=== PATIENT | female | born 1990 ===

== ENCOUNTER 2022-10-27 16:54 | Inpatient (IN) ==
[2022-10-27 17:44] LABS: Creatinine Urine Random 11.9 mg/dl; Protein Creatinine Ratio Urine 1.2 (0-0.2); Total Protein Urine Random 14.3 mg/dl (0-11.9)
[2022-10-27 17:53] LABS: Albumin Globulin Ratio 1.3 (0.9-2); Albumin Level 3.3 gm/dl (3.4-5.0); BUN Creatinine Ratio 13.7 (10-20); Bilirubin,Total 0.2 mg/dl (0.2-1.0); Calcium 8.9 mg/dl (8.6-10.3); Creatinine Clr Calc Pharmacy 182.7 ml/min; Est GFR (African American) 145.4 ml/min; Est GFR (Non-African American) 125.5 ml/min; Globulin 2.6 gm/dl (2.5-4.0); Potassium 3.9 mmol/L (3.5-5.1); Total Protein 5.9 gm/dl (6.0-8.3)
[2022-10-27 17:54] LABS: Basophils # (auto) 0.03 K/uL (0.00-0.20); Basophils % (auto) 0.3 %; Eosinophils # (auto) 0.07 K/uL (0.00-0.50); Eosinophils % (auto) 0.6 %; Hemoglobin 10.6 g/dl (12.0-16.0); Immature Granulocytes # (auto) 0.11 K/uL (0.01-0.20); Lymphocytes # (auto) 2.65 K/uL (1.20-3.40); Lymphocytes % (auto) 23.2 %; Mean Corpuscular Hemoglobin 26.6 pg (25.0-34.0); Mean Corpuscular Hgb Conc 32.1 g/dL (32.0-36.0); Mean Corpuscular Volume 82.7 fL (80.0-100.0); Mean Platelet Volume 9.9 fL (9.4-12.4); Monocytes # (auto) 0.83 K/uL (0.11-0.59); Monocytes % (auto) 7.3 %; Neutrophils # (auto) 7.75 K/uL (1.40-6.50); Neutrophils % (auto) 67.6 %; Platelet Count 281 K/uL (130-400); RDW Standard Deviation 44.4 fL (36.4-46.3); Red Blood Count 3.99 M/uL (4.20-5.40); White Blood Count 11.44 K/ul (4.8-10.8)
--- NOTE | 2022-10-27 18:42 | History & Physical Report ---
Date of Service October 27, 2022 Assessment & Plan (1) 37 weeks gestation of : Plan: Patient has had elevated blood pressures, 1 severe range, with protein creatinine ratio greater than 0.3 Admission, routine labs, recommend delivery at this time Recommend repeat as patient does not have operative report to confirm lower transverse delivery from previous delivery. Patient is agreeable to repeat section at this time, consents were signed at the bedside. Please see operative report for counseling session (2) Preeclampsia: Plan: Based on elevated blood pressures and protein creatinine ratio greater than 0.3 (3) Previous delivery affecting : Plan: Is agreeable to repeat section this evening (4) Limited care in third trimester: Plan: Patient established care at 36 weeks, was seen in clinic total of 3 times Case management order placed Admission and Anticipated Discharge Date Admission Date: October 27, 2022 History of Present Illness Chief Complaint: Elevated BP Primary Care Provider: NO PCP Patient is a 32-year-old -0-0-1 at 37 weeks and 4 days dated by last menstrual period, with no records from [facility] to confirm dating. She was seen in the office earlier today with elevated blood pressure of 150/90 and sent over from clinic. She is a previous x1 She had a previous in 2013 for what is suspected for preeclampsia, no operative report is present, in [place] She is joined in the room with her cousin whom she lives with. Official custom feed corn operator was used over the iPad to get history She denies any other medical or surgical history. Denies any history sexually transmitted infections. She would like her here for delivery, however he is in [place] and was originally not agreeable to be delivered this evening until he came from [place]. She states she is safe in her relationship, lives with her cousin, does not have car seat or things for the baby at this time. Allergies Allergy/AdvReac Type Severity Reaction Status Date / Time No Known Allergies Allergy Unverified 10/27/22 17:36 Home Medications Medication Instructions Recorded Confirmed Type prenat.vits,juany,ahb-qyop-kfgnd 1 tab 10/27/22 History Patient History Social History Smoking Status: Never smoker Hx Alcohol Use: No Hx Substance Use: No Preferred Language: [facility] Communication Ability: Effective Aerial Crop Duster Required: Yes Beliefs That Will Affect Care: Druze Druze Beliefs: Taoism- vegetarian marital status: Current Living Situation: Family Other Information That Helps Us Care for You: No Feels Safe at Home: Yes Safety Concerns: Feels Safe At This Time OB History CDx1 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 Denies any STD history Review of Systems All systems reviewed & are unremarkable except as noted in HPI & below as per Subjective / HPI Physical Exam Constitutional: WD/WN, vitals as above Respiratory: normal respiratory effort, lungs clear to auscultation Cardiovascular: RRR, no murmur, no edema Gastrointestinal (Abdomen): normal bowel sounds, soft, nontender, no hepatosplenomegaly Gravid Results & Data Vital Signs (Past 12 Hours) Vital Signs Temp Resp 10/27/22 17:13 36.7 C 20 Laboratory Results Laboratory Results WBC 11.44 K/ul (4.8-10.8) H 10/27/22 17:15 RBC 3.99 M/uL (4.20-5.40) L 10/27/22 17:15 Hgb 10.6 g/dl (12.0-16.0) L 10/27/22 17:15 Hct 33.0 % (37.0-47.0) L 10/27/22 17:15 MCV 82.7 fL (80.0-100.0) 10/27/22 17:15 MCH 26.6 pg (25.0-34.0) 10/27/22 17:15 MCHC 32.1 g/dL (32.0-36.0) 10/27/22 17:15 RDW Std Deviation 44.4 fL (36.4-46.3) 10/27/22 17:15 RDW Coeff of Fior 15.0 % (11.5-14.5) H 10/27/22 17:15 Plt Count 281 K/uL (130-400) 10/27/22 17:15 MPV 9.9 fL (9.4-12.4) 10/27/22 17:15 Immature Gran % (Auto) 1.0 % 10/27/22 17:15 Neut % (Auto) 67.6 % 10/27/22 17:15 Lymph % (Auto) 23.2 % 10/27/22 17:15 [place] % (Auto) 7.3 % 10/27/22 17:15 Eos % (Auto) 0.6 % 10/27/22 17:15 Baso % (Auto) 0.3 % 10/27/22 17:15 Neut # (Auto) 7.75 K/uL (1.40-6.50) H 10/27/22 17:15 Lymph # (Auto) 2.65 K/uL (1.20-3.40) 10/27/22 17:15 [place] # (Auto) 0.83 K/uL (0.11-0.59) H 10/27/22 17:15 Eos # (Auto) 0.07 K/uL (0.00-0.50) 10/27/22 17:15 Baso # (Auto) 0.03 K/uL (0.00-0.20) 10/27/22 17:15 Immature Gran # (Auto) 0.11 K/uL (0.01-0.20) 10/27/22 17:15 Sodium 135 mmol/L (136-145) L 10/27/22 17:15 Potassium 3.9 mmol/L (3.5-5.1) 10/27/22 17:15 Chloride 106 mmol/L (98-107) 10/27/22 17:15 Carbon Dioxide 22 mmol/L (21-32) 10/27/22 17:15 Anion Gap 7 (3-11) 10/27/22 17:15 BUN 7 mg/dl (6-23) 10/27/22 17:15 Creatinine 0.51 mg/dl (0.6-1.2) L 10/27/22 17:15 Est Cr Clr Drug Dosing 182.7 ml/min 10/27/22 17:15 Est GFR ( Amer) 145.4 ml/min 10/27/22 17:15 Est GFR (Non-Af Amer) 125.5 ml/min 10/27/22 17:15 BUN/Creatinine Ratio 13.7 (10-20) 10/27/22 17:15 Glucose 77 mg/dl (70-99(Fasting)) 10/27/22 17:15 Calcium 8.9 mg/dl (8.6-10.3) 10/27/22 17:15 Total Bilirubin 0.2 mg/dl (0.2-1.0) 10/27/22 17:15 AST 15 U/L (13-39) 10/27/22 17:15 ALT 12 U/L (7-52) 10/27/22 17:15 Alkaline Phosphatase 169 U/L (34-104) H 10/27/22 17:15 Total Protein 5.9 gm/dl (6.0-8.3) L 10/27/22 17:15 Albumin 3.3 gm/dl (3.4-5.0) L 10/27/22 17:15 Globulin 2.6 gm/dl (2.5-4.0) 10/27/22 17:15 Albumin/Globulin Ratio 1.3 (0.9-2) 10/27/22 17:15 Ur Random Creatinine 11.9 mg/dl 10/27/22 17:05 U Random Total Protein 14.3 mg/dl (0-11.9) H 10/27/22 17:05 Protein/Creatinin Ratio 1.2 (0-0.2) H 10/27/22 17:05 Monitoring External Monitor heart tracing: Baseline 120, moderate variability, positive accelerations no decelerations, category 1 tracing Tocodynamometer Irritability with irregular contractions
--- NOTE | 2022-10-27 18:43 | Discharge Summary ---
Date of Service October 27, 2022 Admission HPI Per Admitting Provider Patient is a 32-year-old -0-0-1 at 37 weeks and 4 days dated by last menstrual period, with no records from [place] to confirm dating. She was seen in the office earlier today with elevated blood pressure of 150/90 and sent over from clinic. She is a previous x1 She had a previous in 2013 for what is suspected for preeclampsia, no operative report is present, in [facility] She is joined in the room with her cousin whom she lives with. Official preventive maintenance coordinator was used over the iPad to get history She denies any other medical or surgical history. Denies any history sexually transmitted infections. She would like her here for delivery, however he is in [place] and was originally not agreeable to be delivered this evening until he came from [place]. She states she is safe in her relationship, lives with her cousin, does not have car seat or things for the baby at this time. Admission Exam (Per Admitting) Constitutional WD/WN, vitals as above Respiratory normal respiratory effort, lungs clear to auscultation Cardiovascular RRR, no murmur, no edema Gastrointestinal (Abdomen) normal bowel sounds, soft, nontender, no hepatosplenomegaly Discharge Data Consultations 10/27/22 17:52 Consult Anesthesiology Stat Hospital Course (1) 37 weeks gestation of : Patient has had elevated blood pressures, 1 severe range, with protein creatinine ratio greater than 0.3 Admission, routine labs, recommend delivery at this time Recommend repeat as patient does not have operative report to confirm lower transverse delivery from previous delivery. Patient is agreeable to repeat section at this time, consents were signed at the bedside. Please see operative report for counseling session (2) Preeclampsia: Based on elevated blood pressures and protein creatinine ratio greater than 0.3 (3) Previous delivery affecting : Is agreeable to repeat section this evening (4) Limited care in third trimester: Patient established care at 36 weeks, was seen in clinic total of 3 times Case management order placed (5) delivery delivered: pt doing well No complaints continue care
[2022-10-27] MEDS ORDERED: MoRPHine SULFATE PF 1 MG/ML 10 ML AMP/VIAL ONE (19:10)
[2022-10-27] MEDS ORDERED: LACTATED RINGER'S 1,000 ML IV SCH ×2 (19:15→20:30)
[2022-10-27] MEDS ORDERED: SODIUM CHLORIDE 0.9% 250 ML IV PRN (19:17)
[2022-10-27] MEDS ORDERED: CITRIC ACID/SODIUM CITRATE 15 ML UDC PO STA (19:22)
--- NOTE | 2022-10-27 19:23 | Anesthesiology Consultation ---
Date of Service October 27, 2022 Assessment & Plan Chart Review Chart Review: Acceptable Risk for Surgery Consults Requested none History Surgery Operation Date: 10/27/22 19:40 Proposed Procedures p Section in LD - Cande Henriquez MD, PhD Height/Weight Height: 5 ft 5 in Weight: 100.698 kg Allergies Allergy/AdvReac Type Severity Reaction Status Date / Time No Known Allergies Allergy Unverified 10/27/22 17:36 Medications Home Medications Medication Instructions Recorded Confirmed Last Taken prenat.vits,juany,btq-bivi-qqlzx 1 tab 10/27/22 10/27/22 08:00 Active Medications Generic Name Dose Route Start Last Admin Trade Name Freq PRN Reason Stop Dose Admin Lactated Ringer's 1,000 mls @ 999 mls/hr 10/27/22 19:15 10/27/22 19:16 Lr IV 11/26/22 19:14 999 mls/hr .Q1H1M JONAS Administration Social History Smoking Status: Never smoker Hx Alcohol Use: No Hx Substance Use: No Physical Exam Vital Signs Last Vital Signs Temp 36.7 C 10/27/22 17:13 Resp 20 10/27/22 17:13 Testing Laboratory Results 10/27/22 17:15 10/27/22 17:15 Blood Type O Positive 10/27/22 17:15 Antibody Screen NEGATIVE 10/27/22 17:15
[2022-10-27] MEDS ORDERED: ePHEDrine sulfate 50 MG/ML AMP IV PRN (19:24)
[2022-10-27] MEDS ORDERED: MEPERIDINE HCL 25 MG/ML CARP/VIAL IV PRN (19:24)
[2022-10-27] MEDS ORDERED: diphenhydrAMINE 50 MG/ML VIAL IV PRN (19:24)
[2022-10-27] MEDS ORDERED: LACTATED RINGER'S 500 ML IV PRN (19:24)
[2022-10-27] MEDS ORDERED: HYDROmorphone INJ 0.5 MG/0.5 ML SYR IV PRN (19:24)
[2022-10-27] MEDS ORDERED: ONDANSETRON INJ 2 MG/ML 2 ML VIAL IV PRN (19:24)
[2022-10-27] MEDS ORDERED: NALBUPHINE HCL INJ 10 MG/ML AMP IV PRN (19:24)
[2022-10-27] MEDS ORDERED: METOCLOPRAMIDE HCL 10 MG in SODIUM CHLORIDE 0.9% 50 ML IV PRN (19:24)
[2022-10-27] MEDS ORDERED: MoRPHine SULFATE PF 1 MG/ML 10 ML AMP/VIAL INT SPINAL ONE (19:24)
[2022-10-27] MEDS ORDERED: PROMETHAZINE HCL 12.5 MG in SODIUM CHLORIDE 0.9% 50 ML IV PRN (19:24)
[2022-10-27] MEDS ORDERED: NALOXONE HCL 0.4 MG/1 ML VIAL/CARP IV PRN (19:24)
[2022-10-27] MEDS ORDERED: KETOROLAC 30 MG/ML VIAL IV PRN (19:24)
[2022-10-27] MEDS ORDERED: NALOXONE HCL 1 MG in SODIUM CHLORIDE 0.9% 1,000 ML IV PRN (19:24)
[2022-10-27] MEDS ORDERED: NALOXONE HCL 0.08 MG in SYRINGE 1.8 ML IV PRN (19:24)
[2022-10-27] MEDS ORDERED: MoRPHine SULFATE 2 MG/ML CARP IV PRN (19:24)
[2022-10-27] MEDS ORDERED: CITRIC ACID/SODIUM CITRATE 15 ML UDC ONE (19:28)
[2022-10-27] MEDS ORDERED: ceFAZolin 2000MG 2,000 MG/15 ML SYR IV SCH (19:30)
[2022-10-27] MEDS ORDERED: NO NARCOTICS OR SEDATIVES SCH (19:30)
[2022-10-27] MEDS ORDERED: SODIUM CHLORIDE 0.9% 1,000 ML IV SCH (19:30)
[2022-10-27] MEDS ORDERED: DC INTRASPINAL MORPHINE SCH (19:30)
[2022-10-27] MEDS ORDERED: OXYTOCIN 10 UNITS/ML VIAL ONE (20:17)
[2022-10-27] MEDS ORDERED: PHENYLEPHRINE 100MCG/ML 5ML SYR ONE (20:17)
[2022-10-27] MEDS ORDERED: SENNA 8.6 MG TAB PO PRN (20:22)
[2022-10-27] MEDS ORDERED: MAGNESIUM HYDROXIDE SUSP 30 ML UDC PO PRN (20:22)
[2022-10-27] MEDS ORDERED: BENZOCAINE 20% SPRY 85 APPLN/85 GM CAN EXT PRN (20:22)
[2022-10-27] MEDS ORDERED: HYDROCORTISONE ACETATE 25 MG SUPP PR PRN (20:22)
[2022-10-27] MEDS ORDERED: DIPHTHERIA/TETANUS/PERTUSSIS Vaccine (Tdap, Age 7+yrs) 0.5mL SYR/VL IM ONE (20:22)
--- NOTE | 2022-10-27 20:26 | Operative Report ---
Post Operative Report Pre & Post Diagnosis Operation Date: 10/27/22 19:40 Pre-Op Diagnosis: 1. Pre-eclampsia 2. 37 weeks gestation 3. Limited care 4. Previous section Post-Op Diagnosis: Same as preop I identified the patient and participated in the time-out.: Yes Procedure Operation Date: 10/27/22 19:40 Actual Procedures p Section in LD for delivery of live male at 2000(Bilateral) - Cande Henriquez MD, PhD Surgeon Cande Henriquez MD, PhD [employer] medical technicians, RN Estimated Blood Loss 700 Findings Consistent with Post-Op Diagnosis Liveborn male at 2000, weight pending, Apgars 8/9. Intact placenta with three- vessel cord. Cord pH not obtained Normal-appearing uterus, normal-appearing bilateral fallopian tubes and ovaries seen at time of surgery Fluids 1 L Specimens Placenta Drains Schwarz catheter Anesthesia Type Spinal Complications None Disposition Accompanied Patient To Recovery: No Indications 37 weeks, preeclampsia without severe features, previous x1 Description of Procedure Procedure Summary: section was recommended. Risks, benefits and alternatives were discussed including but not limited to infection, bleeding that may require blood products or hysterectomy for life saving measures, injury to surrounding organs including but not limited to bowel, bladder, ureters, tubes and ovaries and/or the baby. Should injury occur it could require longer/additional surgery to repair. Patient was also counselled about risk of DVT/PE, and injury to during delivery. The patient stated understanding and desired to proceed. All questions were answered posed by patient. Prior to being taken to the OR, 2 grams of cefazolin IV was administered. The patient was taken to the operating room where regional anesthesia was found to be adequate. She was then prepared and draped in the usual sterile fashion in the dorsal supine position with a leftward tilt displacing the uterus. Schwarz was draining to gravity. SCDs were on bilateral lower extremities. A pfannenstiel skin incision was then made with the scalpel and carried through to the underlying layer of fascia. The fascia was incised in the midline and the incision extended laterally with the Tyler scissors. The superior aspect of the facial incision was then grasped with the Juan Miguel clamps, elevated and the underlying rectus muscles dissected off bluntly. Attention was then turned to the inferior aspect of this incision which in a similar fashion was grasped, elevated with the Juan Miguel clamps and the rectus muscle dissected off bluntly. The rectus muscles were in the midline. The peritoneum identified, grasped with the pick-ups and entered sharply with the Metzenbaum scissors. The peritoneal incision was then extended superiorly and inferiorly with good visualization of the bladder. The bladder blade was inserted and the vesicouterine peritoneum was identified, grasped with the pick-ups, and entered sharply with Metzenbaum scissors. This incision was then extended laterally and the bladder flap created digitally and the bladder blade was reinserted. The lower uterine segment was identified and incised in a transverse fashion with the scalpel. The uterine incision was then extended bluntly laterally. Artificial rupture of membranes demonstrated clear fluid. The bladder blade was removed. The fetus was in cephalic presentation. The 's head delivered atraumatically. The anterior shoulders were delivered followed by the posterior shoulders then the remainder of the body. The 's mouth and nose were bulb suctioned. The umbilical cord was clamped times two and cut. The infant was handed off to the awaiting peds staff. A male infant was delivered weight pending with APGARS of 8 at 1 minute and 9 at 5 minutes. The was taken to the recovery room for transition. Cord blood gases were obtained. The placenta was removed with gentle traction. 30 units of oxytocin were added to IVF and allowed to run freely. The uterus was exteriorized and cleared of all clots and debris. The uterine incision was inspected and found to be without any extensions and was repaired with 0 Vicryl in a running, locked fashion. A second imbricating layer was performed. Upon inspection, the repaired hysterotomy was found to be hemostatic. The uterus was firm and returned to the abdomen. The gutters were cleared of all clots and debris. The fascia was reapproximated with 0 Vicryl in a running fashion. The subcutaneous layer was closed with 2-0 Vicryl in a running fashion. The skin was closed in a subcuticular fashion with 4-0 vicryl. Marcos dressing was applied over the incision The patient tolerated the procedure well. Sponge, lap and needle counts were correct x4. The patient was taken to the recovery room in stable condition. Attestation: My [employer] was necessary throughout the procedure(s) for tissue retraction I understand that section 1842 (b)(7)(D) of the Social Security Act generally prohibits Medicare physician fee schedule payment for the services of [id number] in teaching hospitals when qualified residents are available to furnish such services. I certify that the services for which payment is claimed were medically necessary, and that no qualified resident was available to perform the services. I further understand that these services are subject to post-payment review by the Medicare carrier. I attest to the content of the Intraoperative Record and any orders documented therein. Any exceptions are noted below.
--- NOTE | 2022-10-27 21:24 | Anesthesiology Progress Note ---
Date of Service October 27, 2022 Anesthesia Post Procedure Vital Signs Vital Signs: Temp Pulse Resp BP Pulse Ox 10/27/22 20:43 120 H 18 139/80 99 10/27/22 20:53 18 142/88 H 10/27/22 20:33 36.5 C 99 H 18 134/72 99 10/27/22 17:13 36.7 C 20 Transfer of Care Handoff Completed per policy Notes Mental Status: alert / awake / arousable and participated in evaluation Nausea / Vomiting: adequately controlled Pain: adequately controlled Airway Patency, RR, SpO2: stable & adequate BP & HR: stable & adequate Hydration State: stable & adequate Neuraxial Anesthesia: was administered and sensory block is resolving Anesthetic Complications: no major complications apparent and Pt Satisfied with anesthetic care
[2022-10-27] MEDS: OXYTOCIN 20 UNITS in LACTATED RINGER'S 1,000 ML IV SCH (21:42)
[2022-10-27] MEDS: DOCUSATE SODIUM 100 MG CAP PO SCH (21:47)
[2022-10-27] MEDS: SIMETHICONE 80 MG CHEW PO SCH (21:47)
[2022-10-28] MEDS: OXYTOCIN 20 UNITS in LACTATED RINGER'S 1,000 ML IV SCH (05:48)
[2022-10-28] MEDS ORDERED: ceFAZolin 2000MG 2,000 MG/15 ML SYR IV SCH (06:00)
[2022-10-28] MEDS ORDERED: LACTATED RINGER'S 500 ML IV ONE (06:02)
[2022-10-28 08:13] LABS: Albumin Globulin Ratio 1.1 (0.9-2); Albumin Level 2.6 gm/dl (3.4-5.0); BUN Creatinine Ratio 15.5 (10-20); Bilirubin,Total 0.3 mg/dl (0.2-1.0); Calcium 8.3 mg/dl (8.6-10.3); Creatinine Clr Calc Pharmacy 160.7 ml/min; Est GFR (African American) 139.4 ml/min; Est GFR (Non-African American) 120.3 ml/min; Globulin 2.4 gm/dl (2.5-4.0); Potassium 3.8 mmol/L (3.5-5.1)
[2022-10-28] MEDS: SIMETHICONE 80 MG CHEW PO SCH ×3 (09:03→20:58)
[2022-10-28] MEDS: FERROUS SULFATE 325 MG TAB PO SCH ×2 (09:03→09:10)
[2022-10-28] MEDS: PRENATAL VITAMIN 1 TAB PO SCH ×2 (09:03→09:10)
[2022-10-28] MEDS: DOCUSATE SODIUM 100 MG CAP PO SCH ×3 (09:03→21:14)
[2022-10-28 09:29] LABS: Basophils # (auto) 0.03 K/uL (0.00-0.20); Basophils % (auto) 0.2 %; Eosinophils # (auto) 0.05 K/uL (0.00-0.50); Eosinophils % (auto) 0.4 %; Hematocrit (blood only) 28.9 % (37.0-47.0); Hemoglobin 9.5 g/dl (12.0-16.0); Immature Granulocytes # (auto) 0.07 K/uL (0.01-0.20); Immature Granulocytes % (auto) 0.5 %; Lymphocytes # (auto) 2.14 K/uL (1.20-3.40); Lymphocytes % (auto) 16.2 %; Mean Corpuscular Hemoglobin 26.8 pg (25.0-34.0); Mean Corpuscular Hgb Conc 32.9 g/dL (32.0-36.0); Mean Corpuscular Volume 81.4 fL (80.0-100.0); Mean Platelet Volume 10.4 fL (9.4-12.4); Monocytes # (auto) 0.66 K/uL (0.11-0.59); Neutrophils # (auto) 10.28 K/uL (1.40-6.50); Neutrophils % (auto) 77.7 %; Platelet Count 223 K/uL (130-400); RDW Coefficient of Variation 15.4 % (11.5-14.5); RDW Standard Deviation 44.9 fL (36.4-46.3); Red Blood Count 3.55 M/uL (4.20-5.40); White Blood Count 13.23 K/ul (4.8-10.8)
--- NOTE | 2022-10-28 09:48 | Obstetrical Progress Note ---
Date of Service October 28, 2022 Assessment & Plan Admission and Anticipated Discharge Date Admission Date: October 27, 2022 Subjective Patient is seen and examined. She feels well, no complaints. Pain is under control with oral meds. Not OOB yet Tolerating regular diet with out N&V Flatus + BM neg Bleeding is minimal No fever/ chills/ CP/ SOB/ N&V/ Leg pain plans to breast feed Vital Signs Temp Pulse Pulse Resp BP BP Pulse Ox 10/28/22 08:50 18 98 10/28/22 08:50 36.8 C 83 18 137/83 10/28/22 05:40 18 99 10/28/22 04:30 18 98 10/28/22 04:30 36.6 C 90 18 129/84 98 10/28/22 04:05 18 98 10/28/22 03:20 18 99 10/28/22 02:20 18 99 10/28/22 01:10 18 99 10/28/22 00:30 18 99 10/27/22 23:35 18 100 10/27/22 23:35 36.9 C 89 18 124/84 100 10/27/22 23:35 10/27/22 22:33 37.1 C 110 H 18 130/103 H 99 10/27/22 22:13 105 H 135/82 10/27/22 22:13 105 H 18 135/82 100 Pulse Ox O2 Del Method O2 Del Method 10/28/22 08:50 10/28/22 08:50 Room Air 10/28/22 05:40 10/28/22 04:30 10/28/22 04:30 Room Air 10/28/22 04:05 10/28/22 03:20 10/28/22 02:20 10/28/22 01:10 10/28/22 00:30 10/27/22 23:35 10/27/22 23:35 Room Air 10/27/22 23:35 100 Room Air 10/27/22 22:33 10/27/22 22:13 10/27/22 22:13 Lab Results 10/27/22 10/27/22 10/27/22 Range/Units 17:05 17:15 17:15 WBC 11.44 H (4.8-10.8) K/ul RBC 3.99 L (4.20-5.40) M/uL Hgb 10.6 L (12.0-16.0) g/dl Hct 33.0 L (37.0-47.0) % MCV 82.7 (80.0-100.0) fL MCH 26.6 (25.0-34.0) pg MCHC 32.1 (32.0-36.0) g/dL RDW Std Deviation 44.4 (36.4-46.3) fL RDW Coeff of Fior 15.0 H (11.5-14.5) % Plt Count 281 (130-400) K/uL MPV 9.9 (9.4-12.4) fL Immature Gran % (Auto) 1.0 % Neut % (Auto) 67.6 % Lymph % (Auto) 23.2 % [place] % (Auto) 7.3 % Eos % (Auto) 0.6 % Baso % (Auto) 0.3 % Neut # (Auto) 7.75 H (1.40-6.50) K/uL Lymph # (Auto) 2.65 (1.20-3.40) K/uL [place] # (Auto) 0.83 H (0.11-0.59) K/uL Eos # (Auto) 0.07 (0.00-0.50) K/uL Baso # (Auto) 0.03 (0.00-0.20) K/uL Immature Gran # (Auto) 0.11 (0.01-0.20) K/uL Sodium 135 L (136-145) mmol/L Potassium 3.9 (3.5-5.1) mmol/L Chloride 106 (98-107) mmol/L Carbon Dioxide 22 (21-32) mmol/L Anion Gap 7 (3-11) BUN 7 (6-23) mg/dl Creatinine 0.51 L (0.6-1.2) mg/dl Est Cr Clr Drug Dosing 182.7 ml/min Est GFR ( Amer) 145.4 ml/min Est GFR (Non-Af Amer) 125.5 ml/min BUN/Creatinine Ratio 13.7 (10-20) Glucose 77 (70-99(Fasting)) mg/dl Calcium 8.9 (8.6-10.3) mg/dl Total Bilirubin 0.2 (0.2-1.0) mg/dl AST 15 (13-39) U/L ALT 12 (7-52) U/L Alkaline Phosphatase 169 H (34-104) U/L Total Protein 5.9 L (6.0-8.3) gm/dl Albumin 3.3 L (3.4-5.0) gm/dl Globulin 2.6 (2.5-4.0) gm/dl Albumin/Globulin Ratio 1.3 (0.9-2) Ur Random Creatinine 11.9 mg/dl U Random Total Protein 14.3 H (0-11.9) mg/dl Protein/Creatinin Ratio 1.2 H (0-0.2) Blood Type Antibody Screen 10/27/22 10/28/22 10/28/22 Range/Units 17:15 07:15 07:15 WBC 13.23 H (4.8-10.8) K/ul RBC 3.55 L (4.20-5.40) M/uL Hgb 9.5 L (12.0-16.0) g/dl Hct 28.9 L (37.0-47.0) % MCV 81.4 (80.0-100.0) fL MCH 26.8 (25.0-34.0) pg MCHC 32.9 (32.0-36.0) g/dL RDW Std Deviation 44.9 (36.4-46.3) fL RDW Coeff of Fior 15.4 H (11.5-14.5) % Plt Count 223 (130-400) K/uL MPV 10.4 (9.4-12.4) fL Immature Gran % (Auto) 0.5 % Neut % (Auto) 77.7 % Lymph % (Auto) 16.2 % [place] % (Auto) 5.0 % Eos % (Auto) 0.4 % Baso % (Auto) 0.2 % Neut # (Auto) 10.28 H (1.40-6.50) K/uL Lymph # (Auto) 2.14 (1.20-3.40) K/uL [place] # (Auto) 0.66 H (0.11-0.59) K/uL Eos # (Auto) 0.05 (0.00-0.50) K/uL Baso # (Auto) 0.03 (0.00-0.20) K/uL Immature Gran # (Auto) 0.07 (0.01-0.20) K/uL Sodium 136 (136-145) mmol/L Potassium 3.8 (3.5-5.1) mmol/L Chloride 106 (98-107) mmol/L Carbon Dioxide 22 (21-32) mmol/L Anion Gap 8 (3-11) BUN 9 (6-23) mg/dl Creatinine 0.58 L (0.6-1.2) mg/dl Est Cr Clr Drug Dosing 160.7 ml/min Est GFR ( Amer) 139.4 ml/min Est GFR (Non-Af Amer) 120.3 ml/min BUN/Creatinine Ratio 15.5 (10-20) Glucose 82 (70-99(Fasting)) mg/dl Calcium 8.3 L (8.6-10.3) mg/dl Total Bilirubin 0.3 (0.2-1.0) mg/dl AST 15 (13-39) U/L ALT 9 (7-52) U/L Alkaline Phosphatase 119 H (34-104) U/L Total Protein 5.0 L (6.0-8.3) gm/dl Albumin 2.6 L (3.4-5.0) gm/dl Globulin 2.4 L (2.5-4.0) gm/dl Albumin/Globulin Ratio 1.1 (0.9-2) Ur Random Creatinine mg/dl U Random Total Protein (0-11.9) mg/dl Protein/Creatinin Ratio (0-0.2) Blood Type O Positive Antibody Screen NEGATIVE PE: General: Alert, orientedx3, NAD CVS: S1S2 RRR Lungs; CTAB Abd: soft, NT, ND, BS+, fundus firm, below Umbilicus Incision/ Dressing: Clean, dry, intact Perineum intact, Lochia rubra minimal Ext; NT, no edema AP: 32 yo s/p C Section, pod# 1 VSS Afebrile doing well Continue routine postop care Encourage ambulation, PO intake All questions were answered Results & Data Vital Signs (Past 12 Hours) Vital Signs Temp Pulse Pulse Resp BP BP Pulse Ox 10/28/22 08:50 18 98 10/28/22 08:50 36.8 C 83 18 137/83 10/28/22 05:40 18 99 08/30/23 04:30 18 98 10/28/22 04:30 36.6 C 90 18 129/84 98 10/28/22 04:05 18 98 10/28/22 03:20 18 99 10/28/22 02:20 18 99 10/28/22 01:10 18 99 10/28/22 00:30 18 99 10/27/22 23:35 18 100 10/27/22 23:35 36.9 C 89 18 124/84 100 10/27/22 23:35 10/27/22 22:33 37.1 C 110 H 18 130/103 H 99 10/27/22 22:13 105 H 135/82 10/27/22 22:13 105 H 18 135/82 100 Pulse Ox O2 Del Method O2 Del Method 10/28/22 08:50 10/28/22 08:50 Room Air 10/28/22 05:40 10/28/22 04:30 10/28/22 04:30 Room Air 10/28/22 04:05 10/28/22 03:20 10/28/22 02:20 10/28/22 01:10 10/28/22 00:30 10/27/22 23:35 10/27/22 23:35 Room Air 10/27/22 23:35 100 Room Air 10/27/22 22:33 10/27/22 22:13 10/27/22 22:13
[2022-10-28] MEDS ORDERED: diphenhydrAMINE 50 MG/ML VIAL IV PRN (13:24)
[2022-10-28] MEDS ORDERED: diphenhydrAMINE Capsule 25 MG CAP PO PRN (13:24)
[2022-10-28] MEDS ORDERED: KETOROLAC 30 MG/ML VIAL IV PRN (13:24)
[2022-10-28] MEDS ORDERED: MEPERIDINE HCL 50 MG/ML CARP IV PRN (13:24)
[2022-10-28] MEDS ORDERED: PROMETHAZINE HCL 25 MG in SODIUM CHLORIDE 0.9% 50 ML IV PRN (13:24)
[2022-10-28] MEDS ORDERED: ONDANSETRON INJ 2 MG/ML 2 ML VIAL IV PRN (13:24)
[2022-10-28] MEDS: oxyCODONE/ACETAMINOPHEN 5mg/325mg TAB PO PRN ×2 (13:51→20:57)
[2022-10-28] MEDS: IBUPROFEN 600 MG TAB PO PRN ×2 (13:51→20:57)
[2022-10-28] MEDS ORDERED: bisacodyL 5 MG TABEC PO SCH (20:00)
[2022-10-29] MEDS: oxyCODONE/ACETAMINOPHEN 5mg/325mg TAB PO PRN ×5 (05:41→20:25)
[2022-10-29] MEDS: IBUPROFEN 600 MG TAB PO PRN ×5 (05:41→20:25)
[2022-10-29] MEDS: SIMETHICONE 80 MG CHEW PO SCH ×5 (07:29→20:25)
[2022-10-29] MEDS: DOCUSATE SODIUM 100 MG CAP PO SCH ×2 (07:44→20:26)
[2022-10-29] MEDS: FERROUS SULFATE 325 MG TAB PO SCH (07:44)
[2022-10-29] MEDS: PRENATAL VITAMIN 1 TAB PO SCH (07:45)
[2022-10-29 08:02] LABS: Hematocrit (blood only) 29.5 % (37.0-47.0); Hemoglobin 9.3 g/dl (12.0-16.0)
--- NOTE | 2022-10-29 10:06 | Obstetrical Progress Note ---
Date of Service October 29, 2022 Assessment & Plan (1) delivery delivered: pt doing well No complaints continue care Subjective Ambulation: ambulating normally Voiding: no voiding problems Passing Gas:: Yes Diet Tolerance:: clear liquids Lochia:: Small Feeding Type:: breast feeding Review of Systems All systems reviewed & are unremarkable except as noted in HPI & below Physical Exam Constitutional WD/WN, vitals as above well developed and well nourished Eyes PERRL, conjunctivae normal, anicteric sclerae ENMT external ear and nose normal, oropharynx normal Neck trachea midline, no thyromegaly Respiratory normal respiratory effort, lungs clear to auscultation Cardiovascular RRR, no murmur, no edema Chest (Breasts) normal inspection/palpation of breasts Gastrointestinal (Abdomen) normal bowel sounds, soft, nontender, no hepatosplenomegaly Musculoskeletal no cyanosis or clubbing, extremities motor strength 5/5 Skin no rashes, warm and dry + incision (Clean,dry and intact) Neurologic patellar DTR's 2+ bilat, sensation intact Psychiatric A+Ox3, euthymic affect Genitourinary normal external appearance Lymphatic no cervical or axillary lymphadenopathy Results & Data Vital Signs (Past 12 Hours) Vital Signs Temp Pulse Resp BP O2 Del Method 10/29/22 07:25 36.5 C 76 18 125/87 Room Air 10/29/22 05:45 36.7 C 96 H 18 129/90
[2022-10-29] MEDS ORDERED: bisacodyL 10 MG SUPP PR PRN (20:22)
[2022-10-30] MEDS: IBUPROFEN 600 MG TAB PO PRN ×2 (06:16→10:18)
[2022-10-30] MEDS: oxyCODONE/ACETAMINOPHEN 5mg/325mg TAB PO PRN ×2 (06:16→10:18)
--- NOTE | 2022-10-30 09:03 | Obstetrical Progress Note ---
Date of Service October 30, 2022 Assessment & Plan Admission and Anticipated Discharge Date Admission Date: October 27, 2022 Subjective Patient is seen and examined. Motor Equipment Captain was used. She feels well, no complaints. Pain is under control with oral meds. Ambulating without dizziness Voiding without difficulty Tolerating regular diet with out N&V Flatus + BM + Bleeding is minimal No fever/ chills/ CP/ SOB/ N&V/ Leg pain Bottle feeding without problems Vital Signs Temp Pulse Resp BP Pulse Ox O2 Del Method 10/29/22 23:45 36.6 C 69 18 130/87 98 Room Air Lab Results 10/27/22 10/27/22 10/27/22 Range/Units 17:05 17:15 17:15 WBC 11.44 H (4.8-10.8) K/ul RBC 3.99 L (4.20-5.40) M/uL Hgb 10.6 L (12.0-16.0) g/dl Hct 33.0 L (37.0-47.0) % MCV 82.7 (80.0-100.0) fL MCH 26.6 (25.0-34.0) pg MCHC 32.1 (32.0-36.0) g/dL RDW Std Deviation 44.4 (36.4-46.3) fL RDW Coeff of Fior 15.0 H (11.5-14.5) % Plt Count 281 (130-400) K/uL MPV 9.9 (9.4-12.4) fL Immature Gran % (Auto) 1.0 % Neut % (Auto) 67.6 % Lymph % (Auto) 23.2 % [place] % (Auto) 7.3 % Eos % (Auto) 0.6 % Baso % (Auto) 0.3 % Neut # (Auto) 7.75 H (1.40-6.50) K/uL Lymph # (Auto) 2.65 (1.20-3.40) K/uL [place] # (Auto) 0.83 H (0.11-0.59) K/uL Eos # (Auto) 0.07 (0.00-0.50) K/uL Baso # (Auto) 0.03 (0.00-0.20) K/uL Immature Gran # (Auto) 0.11 (0.01-0.20) K/uL Sodium 135 L (136-145) mmol/L Potassium 3.9 (3.5-5.1) mmol/L Chloride 106 (98-107) mmol/L Carbon Dioxide 22 (21-32) mmol/L Anion Gap 7 (3-11) BUN 7 (6-23) mg/dl Creatinine 0.51 L (0.6-1.2) mg/dl Est Cr Clr Drug Dosing 182.7 ml/min Est GFR ( Amer) 145.4 ml/min Est GFR (Non-Af Amer) 125.5 ml/min BUN/Creatinine Ratio 13.7 (10-20) Glucose 77 (70-99(Fasting)) mg/dl Calcium 8.9 (8.6-10.3) mg/dl Total Bilirubin 0.2 (0.2-1.0) mg/dl AST 15 (13-39) U/L ALT 12 (7-52) U/L Alkaline Phosphatase 169 H (34-104) U/L Total Protein 5.9 L (6.0-8.3) gm/dl Albumin 3.3 L (3.4-5.0) gm/dl Globulin 2.6 (2.5-4.0) gm/dl Albumin/Globulin Ratio 1.3 (0.9-2) Ur Random Creatinine 11.9 mg/dl U Random Total Protein 14.3 H (0-11.9) mg/dl Protein/Creatinin Ratio 1.2 H (0-0.2) Blood Type Antibody Screen 10/27/22 10/28/22 10/28/22 Range/Units 17:15 07:15 07:15 WBC 13.23 H (4.8-10.8) K/ul RBC 3.55 L (4.20-5.40) M/uL Hgb 9.5 L (12.0-16.0) g/dl Hct 28.9 L (37.0-47.0) % MCV 81.4 (80.0-100.0) fL MCH 26.8 (25.0-34.0) pg MCHC 32.9 (32.0-36.0) g/dL RDW Std Deviation 44.9 (36.4-46.3) fL RDW Coeff of Fior 15.4 H (11.5-14.5) % Plt Count 223 (130-400) K/uL MPV 10.4 (9.4-12.4) fL Immature Gran % (Auto) 0.5 % Neut % (Auto) 77.7 % Lymph % (Auto) 16.2 % [place] % (Auto) 5.0 % Eos % (Auto) 0.4 % Baso % (Auto) 0.2 % Neut # (Auto) 10.28 H (1.40-6.50) K/uL Lymph # (Auto) 2.14 (1.20-3.40) K/uL [place] # (Auto) 0.66 H (0.11-0.59) K/uL Eos # (Auto) 0.05 (0.00-0.50) K/uL Baso # (Auto) 0.03 (0.00-0.20) K/uL Immature Gran # (Auto) 0.07 (0.01-0.20) K/uL Sodium 136 (136-145) mmol/L Potassium 3.8 (3.5-5.1) mmol/L Chloride 106 (98-107) mmol/L Carbon Dioxide 22 (21-32) mmol/L Anion Gap 8 (3-11) BUN 9 (6-23) mg/dl Creatinine 0.58 L (0.6-1.2) mg/dl Est Cr Clr Drug Dosing 160.7 ml/min Est GFR ( Amer) 139.4 ml/min Est GFR (Non-Af Amer) 120.3 ml/min BUN/Creatinine Ratio 15.5 (10-20) Glucose 82 (70-99(Fasting)) mg/dl Calcium 8.3 L (8.6-10.3) mg/dl Total Bilirubin 0.3 (0.2-1.0) mg/dl AST 15 (13-39) U/L ALT 9 (7-52) U/L Alkaline Phosphatase 119 H (34-104) U/L Total Protein 5.0 L (6.0-8.3) gm/dl Albumin 2.6 L (3.4-5.0) gm/dl Globulin 2.4 L (2.5-4.0) gm/dl Albumin/Globulin Ratio 1.1 (0.9-2) Ur Random Creatinine mg/dl U Random Total Protein (0-11.9) mg/dl Protein/Creatinin Ratio (0-0.2) Blood Type O Positive Antibody Screen NEGATIVE 10/29/22 Range/Units 06:47 WBC (4.8-10.8) K/ul RBC (4.20-5.40) M/uL Hgb 9.3 L (12.0-16.0) g/dl Hct 29.5 L (37.0-47.0) % MCV (80.0-100.0) fL MCH (25.0-34.0) pg MCHC (32.0-36.0) g/dL RDW Std Deviation (36.4-46.3) fL RDW Coeff of Fior (11.5-14.5) % Plt Count (130-400) K/uL MPV (9.4-12.4) fL Immature Gran % (Auto) % Neut % (Auto) % Lymph % (Auto) % [place] % (Auto) % Eos % (Auto) % Baso % (Auto) % Neut # (Auto) (1.40-6.50) K/uL Lymph # (Auto) (1.20-3.40) K/uL [place] # (Auto) (0.11-0.59) K/uL Eos # (Auto) (0.00-0.50) K/uL Baso # (Auto) (0.00-0.20) K/uL Immature Gran # (Auto) (0.01-0.20) K/uL Sodium (136-145) mmol/L Potassium (3.5-5.1) mmol/L Chloride (98-107) mmol/L Carbon Dioxide (21-32) mmol/L Anion Gap (3-11) BUN (6-23) mg/dl Creatinine (0.6-1.2) mg/dl Est Cr Clr Drug Dosing ml/min Est GFR ( Amer) ml/min Est GFR (Non-Af Amer) ml/min BUN/Creatinine Ratio (10-20) Glucose (70-99(Fasting)) mg/dl Calcium (8.6-10.3) mg/dl Total Bilirubin (0.2-1.0) mg/dl AST (13-39) U/L ALT (7-52) U/L Alkaline Phosphatase (34-104) U/L Total Protein (6.0-8.3) gm/dl Albumin (3.4-5.0) gm/dl Globulin (2.5-4.0) gm/dl Albumin/Globulin Ratio (0.9-2) Ur Random Creatinine mg/dl U Random Total Protein (0-11.9) mg/dl Protein/Creatinin Ratio (0-0.2) Blood Type Antibody Screen PE: General: Alert, orientedx3, NAD CVS: S1S2 RRR Lungs; CTAB Abd: soft, NT, ND, BS+, fundus firm, below Umbilicus Incision: Clean, dry, intact Perineum intact, Lochia rubra minimal Ext; NT, no edema AP: 32 yo s/p C Section, pod# 3 VSS Afebrile doing well Continue routine postop care Encourage ambulation, PO intake All questions were answered D/C home , f/u in office Results & Data Vital Signs (Past 12 Hours) Vital Signs Temp Pulse Resp BP Pulse Ox O2 Del Method 10/29/22 23:45 36.6 C 69 18 130/87 98 Room Air
[2022-10-30] MEDS: SIMETHICONE 80 MG CHEW PO SCH (10:16)
[2022-10-30] MEDS: PRENATAL VITAMIN 1 TAB PO SCH (10:16)
[2022-10-30] MEDS: DOCUSATE SODIUM 100 MG CAP PO SCH (10:16)
[2022-10-30] MEDS: FERROUS SULFATE 325 MG TAB PO SCH (10:16)
== END 2022-10-30 15:45 | disposition home or self-care (01) | DRG 788 ==
LOC: OPB 16:54 → 4S1 16:56 → 4E2 23:30